=== PATIENT | male | born 1960 | race American Indian/Alaskan Native ===

== ENCOUNTER 2021-11-03 15:37 | Emergency (ER) | payer SELFPAY ==
[2021-11-03 15:43] VITALS: BP 112/71
--- NOTE | 2021-11-03 16:41 | Emergency Department Report ---
ED Lower Extremity HPI - General Chief Complaint: Extremity Problem,Nontraumatic Stated Complaint: FEET PAIN Source: patient Mode of arrival: Ambulatory Limitations: No Limitations - History of Present Illness Initial Comments: 61-year-old male present with left foot pain x4 days. Patient states that he had his foot pressed against the headboard awakened with pain x4 days ago. Patient states he is unsure if he may have caused trauma during his sleep. Patient stated that he noticed some swelling but after elevation he notice decrease in swelling. Patient state pain is a top of foot .State pain 3/10 . Patient is ambulatory and able to bear weight without difficult. No acute distress noted .no ill appearance noted. Injury: Foot: Left Severity scale (0 -10): 3 Improves With: rest Worsens With: nothing Associated Symptoms: swelling - Related Data Allergies Allergy/AdvReac Type Severity Reaction Status Date / Time No Known Allergies Allergy Verified 11/03/21 15:40 ED Review of Systems ROS: Stated complaint: FEET PAIN Other details as noted in HPI Constitutional: denies: chills, fever Eyes: denies: eye pain, eye discharge, vision change ENT: denies: ear pain, throat pain Respiratory: denies: cough, shortness of breath, wheezing Cardiovascular: denies: chest pain, palpitations Endocrine: no symptoms reported Gastrointestinal: denies: abdominal pain, nausea, diarrhea Genitourinary: denies: urgency, dysuria Musculoskeletal: joint swelling. denies: back pain, arthralgia Skin: denies: rash, lesions Neurological: denies: headache, weakness, paresthesias Psychiatric: denies: anxiety, depression Hematological/Lymphatic: denies: easy bleeding, easy bruising ED Physical Exam - General Limitations: No Limitations General appearance: alert, in no apparent distress - Head Head exam: Present: atraumatic, normocephalic - Eye Eye exam: Present: normal appearance - ENT ENT exam: Present: mucous membranes moist - Neck Neck exam: Present: normal inspection - Respiratory Respiratory exam: Present: normal lung sounds bilaterally. Absent: respiratory distress - Cardiovascular Cardiovascular Exam: Present: regular rate, normal rhythm. Absent: systolic murmur, diastolic murmur, rubs, gallop - GI/Abdominal GI/Abdominal exam: Present: soft, normal bowel sounds - Rectal Rectal exam: Present: deferred - Extremities Exam Extremities exam: Present: normal inspection - Back Exam Back exam: Present: normal inspection - Neurological Exam Neurological exam: Present: alert, oriented X3 - Psychiatric Psychiatric exam: Present: normal affect, normal mood - Skin Skin exam: Present: warm, dry, intact, normal color. Absent: rash ED Course Vital Signs 11/03/21 15:42 Temperature 98.0 F Pulse Rate 70 Respiratory 16 Rate Blood Pressure 112/71 O2 Sat by Pulse 94 Oximetry ED Lower Extremity MDM - Radiology Data [facility] [address] [place] [address] XRay Report Signed Patient: SHAYNE TAYLOR MR# : [id number] : 1960 Acct:[id number] Age/Sex: 61 / M ADM Date: 11/03/21 Loc: ED Attending Dr: Ordering Physician: BALDEMAR LOCKWOOD Date of Service: 11/03/21 Procedure(s): XR foot 3+V LT Accession Number(s): [id number] cc: BLADEMAR LOCKWOOD Fluoro Time In Minutes: LEFT FOOT 3 VIEWS INDICATION / CLINICAL INFORMATION: left foot pain COMPARISON: None available. FINDINGS: BONES / JOINT(S): No acute fracture or subluxation. Moderate bunion first metatarsal head medially with mild hallux valgus. Small/moderate calcaneal spur. SOFT TISSUES: Atherosclerotic vascular calcification is mild. ADDITIONAL FINDINGS: None. Signer Name: Bennie Rojas MD Signed: 11/03/2021 4:56 PM Workstation Name: [id number] Transcribed By: ES Dictated By: Bennie Rojas MD Electronically Authenticated By: Bennie Rojas MD Signed Date/Time: 11/03/211655 DD/ 53 TD/TT: Print Cancel - Medical Decision Making 61-year-old male present with left foot pain x4 days. Patient states that he had his foot pressed against the headboard awakened with pain x4 days ago. Patient states he is unsure if he may have caused trauma during his sleep. Patient stated that he noticed some swelling but after elevation he notice decrease in swelling. Patient state pain is a top of foot .State pain 3/10 . Patient is ambulatory and able to bear weight without difficult. No acute distress noted .no ill appearance noted. Physical Eximaination Xray show :No acute fracture or subluxation .Moderate bunion first metatarsal head medially with hallux valgus,small moderate calcaneal spur .Atherosclerotic vascular calcification is mild. Rechecked the patient is resting quietly quietly and comfortable and feeling better. I discussed the results of diagnostic study, my clinical impression and the plan for further treatment with the patient. Patient agrees with plan and discharge at this present time. All question addressed. I have given the patient instruction regarding a diagnosis ,expectation ,follow- up and return precaution. I explained to the patient that emergent condition may arise and to return to the ED for new worsen and any new persisting condition. I have explained the importance of following up with the primary care physician or referral physician listed below has instructed. The patient verbalized understanding of discharge instruction. Critical care attestation.: If time is entered above; I have spent that time in minutes in the direct care of this critically ill patient, excluding procedure time. ED Disposition Clinical Impression: Pain, foot, left, chronic Disposition: 01 HOME / SELF CARE / HOMELESS Is pt being admited?: No Does the pt Need Aspirin: No Condition: Stable Instructions: How to Use Cold Therapy, [id number], Chronic Pain, Adult, Foot Pain Additional Instructions: Elevate foot when swelling is noted May take [id number] Tylenol for pain Return to ED for any worsening symptom Referrals: PRIMARY CAREMD [Referring] - 3-5 Days OWEN LOPEZ MD [Staff Physician] - 3-5 Days Forms: Work/School Release Form(ED) Time of Disposition: 17:25
--- NOTE | 2021-11-03 17:01 | XRay Report ---
LEFT FOOT 3 VIEWS INDICATION / CLINICAL INFORMATION: left foot pain COMPARISON: None available. FINDINGS: BONES / JOINT(S): No acute fracture or subluxation. Moderate bunion first metatarsal head medially wi th mild hallux valgus. Small/moderate calcaneal spur. SOFT TISSUES: Atherosclerotic vascular calcification is mild. ADDITIONAL FINDINGS: None. Signer Name: Bennie Rojas MD Signed: 11/03/2021 4:56 PM Workstation Name: [id number]
== END 2021-11-03 17:42 | disposition home or self-care (01) ==
LOC: ED 15:37
DX: M79.672 Pain in left foot (principal); G89.29 Other chronic pain; X58.XXXA Exposure to other specified factors, initial encounter; Y93.89 Activity, other specified; Y92.89 Other specified places as the place of occurrence of the external cause; Y99.8 Other external cause status
CPT/HCPCS: 99283

== ENCOUNTER 2022-01-25 20:17 | Emergency (ER) | payer MEDICAID | END 2022-01-26 | disposition left against medical advice (07) | LOC: ED 20:17 | DX: Z00.00 Encounter for general adult medical examination without abnormal findings (principal); Z53.21 Procedure and treatment not carried out due to patient leaving prior to being seen by health care provider ==

== ENCOUNTER 2022-02-09 10:19 | Emergency (ER) | payer MEDICAID ==
[2022-02-09] MEDS ORDERED: HYDROcodone/ACETAMINOPHEN 5-325 MG TAB PO STA (14:18)
[2022-02-09] MEDS ORDERED: predniSONE 50 MG TAB PO STA (14:18)
--- NOTE | 2022-02-09 15:15 | Emergency Department Report ---
ED General Adult HPI - General Chief complaint: Pain General Stated complaint: HAND/FEET SWELLING Source: patient Mode of arrival: Ambulatory Limitations: No Limitations - Related Data Allergies Allergy/AdvReac Type Severity Reaction Status Date / Time No Known Allergies Allergy Verified 11/03/21 15:40 ED Review of Systems ROS: Stated complaint: HAND/FEET SWELLING Other details as noted in HPI Comment: All other systems reviewed and negative ED Past Medical Hx - Past Medical History Previous Medical History?: No - Surgical History Past Surgical History?: No ED Physical Exam - General Limitations: No Limitations General appearance: alert, in no apparent distress - Head Head exam: Present: atraumatic, normocephalic - Eye Eye exam: Present: normal appearance - ENT ENT exam: Present: mucous membranes moist - Neck Neck exam: Present: normal inspection - Respiratory Respiratory exam: Present: normal lung sounds bilaterally. Absent: respiratory distress - Cardiovascular Cardiovascular Exam: Present: regular rate, normal rhythm. Absent: systolic murmur, diastolic murmur, rubs, gallop - GI/Abdominal GI/Abdominal exam: Present: soft, normal bowel sounds - Rectal Rectal exam: Present: deferred - Extremities Exam Extremities exam: Present: normal inspection - Back Exam Back exam: Present: normal inspection - Neurological Exam Neurological exam: Present: alert, oriented X3 - Psychiatric Psychiatric exam: Present: normal affect, normal mood - Skin Skin exam: Present: warm, dry, intact, normal color. Absent: rash ED Course Vital Signs 02/09/22 11:29 Temperature 97.7 F Pulse Rate 70 Respiratory 18 Rate Blood Pressure 123/86 O2 Sat by Pulse 99 Oximetry Critical care attestation.: If time is entered above; I have spent that time in minutes in the direct care of this critically ill patient, excluding procedure time. ED Disposition Condition: Stable
--- NOTE | 2022-02-09 15:26 | XRay Report ---
RIGHT FOOT 3 VIEWS INDICATION: pain to foot. COMPARISON: None. IMPRESSION: There is a mild to moderate hallux valgus deformity. No acute osseous abnormality is det ected. There are early degenerative changes at the first metatarsophalangeal joint. No erosive joint pathology. Small accessory navicular bone is noted. RIGHT HAND 3 VIEWS INDICATION: Pain in metacarpal joints 2 and 3. COMPARISON: None. IMPRESSION: No acute osseous or soft tissue abnormality. No significant DJD. Signer Name: Sukhdev Gee Jr, MD Signed: 02/09/2022 3:22 PM Workstation Name: [id number]
[2022-02-09 18:04] VITALS: BP 135/87
== END 2022-02-09 18:51 | disposition home or self-care (01) ==
LOC: ED 10:19
DX: M25.449 Effusion, unspecified hand (principal); M25.48 Effusion, other site
CPT/HCPCS: 73130; 73630; 99283; J7512